=== PATIENT | male | born 1960 | race Caucasian/White ===

== ENCOUNTER → 2016-05-11 | Outpatient (CLI) | payer BC ==
[~2016-05-11] MED LIST: AMLODIPINE BESY10 MG PO; FENOFIBRATE MI134 MG PO; SILDENAFIL PO; ZESTRIL20 M1 PO; ZETIA 10MG TAB10 MG PO
[2016-05-11 10:29] VITALS: BP 130/84
== END ==
LOC: AMSURD 10:17
DX: E78.2 Mixed hyperlipidemia (principal)

== ENCOUNTER → 2016-10-04 | Outpatient (CLI) | payer BC ==
[2016-05-11 10:29] VITALS: BP 130/84
== END ==
LOC: LAB 08:27
DX: E78.2 Mixed hyperlipidemia (principal); I10 Essential (primary) hypertension

== ENCOUNTER → 2017-02-11 | Outpatient (CLI) | payer BC ==
[2016-05-11 10:29] VITALS: BP 130/84
== END ==
LOC: RAD 08:42
DX: R05 Cough (principal); R06.2 Wheezing; Z72.0 Tobacco use

== ENCOUNTER → 2017-04-30 | Outpatient (CLI) | payer BC ==
[2016-05-11 10:29] VITALS: BP 130/84
[2017-04-30 11:22] LABS: ALBUMIN 4.2 g/dL (3.5-5.0); CALCIUM 9.5 mg/dL (8.4-10.2); POTASSIUM 4.1 mmol/L (3.6-5.0); TOTAL BILIRUBIN 0.7 mg/dL (0.2-1.3); TOTAL PROTEIN 7.2 g/dL (6.3-8.2)
== END ==
LOC: LAB 10:35
PROVIDERS: Family Medicine
DX: E78.2 Mixed hyperlipidemia (principal); Z12.5 Encounter for screening for malignant neoplasm of prostate

== ENCOUNTER → 2018-08-28 | Outpatient (CLI) | payer BC ==
[2016-05-11 10:29] VITALS: BP 130/84
[2018-08-28 10:45] LABS: ALBUMIN 4.2 g/dL (3.5-5.0); CALCIUM 9.6 mg/dL (8.4-10.2); POTASSIUM 4.2 mmol/L (3.5-5.1); TOTAL BILIRUBIN 0.6 mg/dL (0.2-1.2); TOTAL PROTEIN 7.3 g/dL (6.4-8.3)
== END ==
LOC: LAB 10:10
PROVIDERS: Family Medicine
DX: E78.2 Mixed hyperlipidemia (principal)

== ENCOUNTER → 2018-12-25 | Outpatient (CLI) | payer BC ==
[2016-05-11 10:29] VITALS: BP 130/84
[2018-12-25 09:40] LABS: ALBUMIN 4.6 g/dL (3.5-5.0); POTASSIUM 4.3 mmol/L (3.5-5.1)
[2018-12-25 09:41] LABS: CALCIUM 9.8 mg/dL (8.3-10.5)
[2018-12-25 09:43] LABS: TOTAL PROTEIN 7.2 g/dL (6.4-8.3)
[2018-12-25 09:44] LABS: TOTAL BILIRUBIN 0.6 mg/dL (0.2-1.2)
== END ==
LOC: LAB 08:55
PROVIDERS: Family Medicine
DX: E78.2 Mixed hyperlipidemia (principal)

== ENCOUNTER → 2019-01-28 | Outpatient (CLI) | payer BC ==
[2016-05-11 10:29] VITALS: BP 130/84
[2019-01-28 10:18] LABS: POTASSIUM 4.3 mmol/L (3.5-5.1)
[2019-01-28 10:20] LABS: CALCIUM 9.6 mg/dL (8.3-10.5)
== END ==
LOC: LAB 10:02
PROVIDERS: Family Medicine
DX: I12.9 Hypertensive chronic kidney disease with stage 1 through stage 4 chronic kidney disease, or unspecified chronic kidney disease (principal); N18.2 Chronic kidney disease, stage 2 (mild)

== ENCOUNTER → 2019-02-04 | Outpatient (CLI) | payer BC ==
[2016-05-11 10:29] VITALS: BP 130/84
== END ==
LOC: CANPRECLI → CARDLAB 08:19 → CARDREHAB 08:19 → CARDLAB 09:37
DX: Z02.89 Encounter for other administrative examinations (principal)

== ENCOUNTER → 2019-02-25 | Outpatient (CLI) | payer BC ==
[2016-05-11 10:29] VITALS: BP 130/84
== END ==
LOC: CARDREHAB 11:05
DX: G47.30 Sleep apnea, unspecified (principal)

== ENCOUNTER → 2019-11-03 | Outpatient (CLI) | payer BC ==
[2016-05-11 10:29] VITALS: BP 130/84
[2019-11-03 10:09] LABS: ALBUMIN 4.3 g/dL (3.5-5.0)
[2019-11-03 10:12] LABS: TOTAL PROTEIN 7.3 g/dL (6.4-8.3)
[2019-11-03 10:14] LABS: TOTAL BILIRUBIN 0.8 mg/dL (0.2-1.2)
[2019-11-03 10:17] LABS: DIRECT BILIRUBIN 0.3 mg/dL (0.0-0.5)
[2019-11-04 17:59] LABS: POTASSIUM 4.3 mmol/L (3.5-5.1)
[2019-11-04 18:00] LABS: CALCIUM 8.9 mg/dL (8.3-10.5)
== END ==
LOC: LAB 09:41
PROVIDERS: Family Medicine
DX: E78.2 Mixed hyperlipidemia (principal)

== ENCOUNTER → 2020-03-15 | Outpatient (CLI) | payer BC ==
[2016-05-11 10:29] VITALS: BP 130/84
[2020-03-16 00:06] LABS: ALBUMIN 4.4 g/dL (3.5-5.0)
[2020-03-16 00:08] LABS: TOTAL PROTEIN 7.2 g/dL (6.4-8.3)
[2020-03-16 00:10] LABS: TOTAL BILIRUBIN 0.5 mg/dL (0.2-1.2)
[2020-03-16 19:32] LABS: DIRECT BILIRUBIN 0.2 mg/dL (0.0-0.5)
== END ==
LOC: LAB 10:30
PROVIDERS: Family Medicine
DX: E78.2 Mixed hyperlipidemia (principal)

== ENCOUNTER → 2020-04-07 | Outpatient (CLI) | payer BC ==
[2016-05-11 10:29] VITALS: BP 130/84
== END ==
LOC: LAB 10:11
DX: Z12.5 Encounter for screening for malignant neoplasm of prostate (principal)

== ENCOUNTER → 2020-08-24 | Outpatient (CLI) | payer BC ==
[2016-05-11 10:29] VITALS: BP 130/84
[~2020-08-24] MED LIST changes: +AMLODIPINE BESYL5 MG PO; +FENOFIBRATE48 MG PO; +SIMVASTATIN20 M1 PO; +ZOFRAN ODT4 MG PO
[2020-08-24 10:34] LABS: POTASSIUM 4.1 mmol/L (3.5-5.1)
[2020-08-24 10:36] LABS: CALCIUM 9.4 mg/dL (8.3-10.5)
== END ==
LOC: LAB 10:10
PROVIDERS: Family Medicine
DX: I10 Essential (primary) hypertension (principal); E78.5 Hyperlipidemia, unspecified

== ENCOUNTER → 2020-11-29 | Outpatient (CLI) | payer BC | LOC: LAB 08:41 | DX: E78.2 Mixed hyperlipidemia (principal) ==

== ENCOUNTER 2021-02-14 09:41 | Emergency (ER) | payer BC ==
[~2021-02-14] VITALS: Ht 185.4 cm; Wt 94.0 kg
[~2021-02-14 09:41] MED LIST changes: -AMLODIPINE BESYL5 MG PO; -FENOFIBRATE48 MG PO; -SIMVASTATIN20 M1 PO; -ZOFRAN ODT4 MG PO
[2021-02-14] MEDS ORDERED: AMLODIPINE BESYL5 MG PO (09:57)
[2021-02-14] MEDS ORDERED: FENOFIBRATE48 MG PO (09:58)
[2021-02-14] MEDS ORDERED: SIMVASTATIN20 M1 PO (09:58)
[2021-02-14] MEDS ORDERED: ZOFRAN ODT4 MG PO (11:06)
[2021-02-14 11:20] VITALS: BP 132/87
== END 2021-02-14 11:20 | disposition home or self-care (01) ==
LOC: ED 09:41
DX: U07.1 COVID-19 (principal)

== ENCOUNTER → 2021-03-08 | Outpatient (CLI) | payer BC ==
[~2021-03-08] MED LIST changes: +AMLODIPINE BESYL5 MG PO; +FENOFIBRATE48 MG PO; +SIMVASTATIN20 M1 PO; +ZOFRAN ODT4 MG PO
[2021-03-08 10:10] LABS: POTASSIUM 4.7 mmol/L (3.5-5.1)
[2021-03-08 10:11] LABS: CALCIUM 9.3 mg/dL (8.3-10.5)
[2021-03-08 10:13] LABS: TOTAL PROTEIN 7.1 g/dL (6.2-8.1)
[2021-03-08 10:14] LABS: TOTAL BILIRUBIN 0.4 mg/dL (0.2-1.2)
== END ==
LOC: LAB 09:43
PROVIDERS: Family Medicine
DX: I10 Essential (primary) hypertension (principal)

== ENCOUNTER → 2021-08-17 | Outpatient (CLI) | payer BC ==
[2021-08-17 11:44] LABS: ALBUMIN 4.3 g/dL (3.4-4.8); POTASSIUM 4.6 mmol/L (3.5-5.1)
[2021-08-17 11:45] LABS: CALCIUM 9.6 mg/dL (8.3-10.5)
[2021-08-17 11:48] LABS: TOTAL BILIRUBIN 0.6 mg/dL (0.2-1.2)
== END ==
LOC: LAB 11:22
PROVIDERS: Family Medicine
DX: Z12.5 Encounter for screening for malignant neoplasm of prostate (principal); E78.2 Mixed hyperlipidemia; I10 Essential (primary) hypertension

== ENCOUNTER → 2021-08-25 | Outpatient (CLI) | payer BC | LOC: LAB 10:21 | DX: Z12.5 Encounter for screening for malignant neoplasm of prostate (principal); E78.2 Mixed hyperlipidemia; I10 Essential (primary) hypertension ==

== ENCOUNTER → 2021-09-08 | Outpatient (CLI) | payer BC | LOC: CARDREHAB 09:43 | DX: Z12.5 Encounter for screening for malignant neoplasm of prostate (principal); Z13.6 Encounter for screening for cardiovascular disorders; I10 Essential (primary) hypertension; E78.2 Mixed hyperlipidemia | CPT/HCPCS: A9500 ==

== ENCOUNTER → 2023-08-22 | Outpatient (CLI) | payer BC ==
[2023-08-22 09:47] LABS: CALCIUM 9.6 mg/dL (8.3-10.5)
[2023-08-22 23:39] LABS: CREATININE OTHER SOURCE 98 mg/dL (47-110)
== END ==
LOC: LAB 09:20
PROVIDERS: Family Medicine
DX: Z11.4 Encounter for screening for human immunodeficiency virus [HIV] (principal); Z12.5 Encounter for screening for malignant neoplasm of prostate; Z13.6 Encounter for screening for cardiovascular disorders; Z13.1 Encounter for screening for diabetes mellitus; I10 Essential (primary) hypertension; E78.2 Mixed hyperlipidemia

== ENCOUNTER → 2023-11-27 | Outpatient (CLI) | payer BC | LOC: LAB 10:20 | DX: E78.2 Mixed hyperlipidemia (principal); I10 Essential (primary) hypertension ==